=== PATIENT | female | born 1940 | race Caucasian/White ===

== ENCOUNTER 2018-03-19 19:04 | Inpatient (IN) ==
--- NOTE | 2018-03-19 20:13 | Emergency Department Note ---
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 insulin use: unspecified custodial insulin use status Diabetes mellitus complication status: with unspecified complications Qualified Code(s): E13.8 - Other specified diabetes mellitus with unspecified complications Disposition: Admitted As Inpatient Condition: Good Time of Disposition: 23:15 General Adult HPI - General Chief complaint: ED Dizziness Stated complaint: "Stroke Like Symptoms x 2 days" Time Seen by Provider: 03/19/18 19:55 Source: patient, family (Daughter) Mode of arrival: ambulatory Limitations: no limitations Nursing Notes Reviewed: Yes Vital Signs Reviewed: Yes - History of Present Illness HPI Narrative: 77-year-old female history of hypertension presents to the emergency department with complaint of stroke like symptoms. She reports numbness in her left hand with blurry vision and difficulty with walking. She denies any recent illness. No history of stroke. Denies any slurred speech or facial droop. She does not take any anticoagulants other than the baby aspirin on a daily basis. She states the last known well was about a week ago where she admits she denies any weakness, difficulty ambulating or numbness.. Her son went to see the patient and that was when she admitted to the symptoms and brought her here for evaluation. She is here with her daughter at this time. 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 She is denying any other complaints such as fever, cough, congestion, chest pain, shortness of breath, abdominal pain. No recent injury to her left arm or prior surgeries. It is isolated to the hand with some reported weakness. She denies any new medications. She has reports some weight loss and increased thirst as well as urination. A bedside point of care glucose was performed in [facility] on my initial evaluation. No history of cardiac ischemic disease. Pain Scale: 0 - Related Data Home Medications Medication Instructions Recorded Confirmed Ascorbic Acid [Vitamin C] 500 mg PO DAILY 03/19/18 03/19/18 Calcium Carbonate [Calcium] 500 mg PO DAILY 03/19/18 03/19/18 Cholecalciferol (D-3) [Vitamin D] 1,000 unit PO DAILY 03/19/18 03/19/18 Magnesium Oxide [Magnesium] 400 mg PO DAILY 03/19/18 03/19/18 Multivitamin [One Daily Essential] 1 tab PO DAILY 03/19/18 03/19/18 RX: Labetalol HCl 400 mg PO BID 03/19/18 03/19/18 RX: Lisinopril [Zestril] 20 mg PO DAILY 03/19/18 03/19/18 RX: Triamterene/HCTZ 37.5/25mg 1 tab PO DAILY 03/19/18 03/19/18 [Dyazide] Allergies Allergy/AdvReac Type Severity Reaction Status Date / Time ampicillin Allergy Rash Verified 03/19/18 22:09 Penicillins Allergy Rash Verified 03/19/18 22:09 All systems ED: reviewed and negative except as stated. Review of Systems: As Per HPI Constitutional: Reports: weakness. Denies: fever, chills Eyes: Reports: vision change (Blurry vision, improving) ENT ED: Denies: congestion Cardiovascular: Denies: chest pain Respiratory: Denies: cough, dyspnea Gastrointestinal: Denies: abdominal pain, nausea, vomiting Genitourinary: Denies: urgency, dysuria, hematuria Musculoskeletal: Denies: back pain, neck pain Integumentary: Denies: rash, abrasion Neurological: Reports: paresthesias, abnormal gait. Denies: headache, weakness, vertigo Psychiatric: Denies: anxiety, depression Endocrine: Reports: polydipsia, polyuria. Denies: fatigue Past Medical History - Past Medical History Attestation: Yes The following information was validated with the patient. 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 Absent: nystagmus - ENT ENT exam: normal exam, normal oropharynx, mucous membranes moist - Neck Neck exam: Present: normal inspection, full ROM, trachea midline. Absent: tenderness - Chest Chest inspection: Present: normal inspection, symmetric chest wall rise - Respiratory Respiratory exam: Present: normal lung sounds bilaterally - Cardiovascular Cardiovascular exam: Present: normal rhythm, tachycardia, normal heart sounds. Absent: systolic murmur, diastolic murmur - Expanded Cardiovascular Exam Peripheral pulses: 2+: radial (R), radial (L) - Abdominal Exam Abdominal exam: Present: soft, Non-Tender, normal bowel sounds. Absent: tenderness, distention, guarding, rebound, rigidity - Extremities Exam Extremities exam: Present: normal inspection, full ROM, normal capillary refill. Absent: tenderness, pedal edema - Back Exam Back exam: Present: normal inspection, full ROM. Absent: tenderness - Neurological Exam Neurological exam: Present: alert, oriented X3, CN II-XII intact, normal gait - Expanded Neurological Exam Patient oriented to: Present: person, place, time Speech: Present: fluid speech Cranial nerves: EOM function (II, III, IV, ): Normal, facial sensation (V): Normal, facial palsy (VII): Normal, gag reflex (IX): Normal, spinal accessory function (XI): Normal, tongue deviation (XII): Normal Cerebellar function: finger to nose: Normal Cerebellar function: normal gait Motor strength - LUE: 5/5 Motor strength - RUE: 5/5 Motor strength - LLE: 5/5 Motor strength - RLE: 5/5 Upper motor neuron exam: flex neglect: Absent bilaterally, pronator drift: Absent bilaterally Sensory exam upper extremity: light touch: Normal Sensory exam lower extremity: light touch: Normal Coma Scale Eye Opening: Spontaneous Coma Scale Motor Response: Obeys Commands Coma Scale Verbal Response: Oriented Coma Scale Total: 15 - Psychiatric Psychiatric exam: Present: normal affect, normal mood - Skin Skin exam: Present: warm, dry, intact, normal color. Absent: rash, cyanosis, diaphoresis Course Course Narrative: Patient presents with a complaint of left hand weakness numbness as well as difficulty with ambulation and blurred vision. The symptoms have been ongoing for which she reports almost a week is that was her last well-known were the symptoms were absent. Therefore no stroke alert was initiated. She also reports history of borderline diabetes is currently not on any medications other than antihypertensives. On physical exam patient was ambulatory but did lean to the right requiring support. She denies the facial droop. Her NIH score was 0. A point of care glucose was performed in the room during my examination and read high. I suspect the majority of her symptoms secondary to hyperglycemia and we will treat her as such and evaluate for possible DKA for new onset. Given her vague neurologic symptoms will also obtain a CT of the head. I performed additional test and did not reproduce any significant pain. She denied have any week and technical specialist cytogenetics strength. Is quite isolated and did not fit any other particular dermatome. Patient will be reevaluated after workup and disposition pending. - Reevaluation(s) Reevaluation #1: Patient has in anionic gap of 14. Her bicarbonates 20. She is slightly acidotic 7.34. Her ketones are 1. She is on the cusp of being in diabetic ketoacidosis. Patient will be initiated on insulin drip at this time as her glucose continues to read high on the glucometer. Her CT scan did not reveal any findings for stroke or normal pressure hydrocephalus. The numbness in her left hand could likely be due to peripheral neuropathy but her Tinel test was not suggestive. At this time patient will be admitted for hyperglycemia and new onset diabetes with weakness. She is in agreement with this plan. - Consultations Consultation #1: Spoke with on-call hospitalist gurdeep Albrecht to admit for hyperglycemia, new onset diabetes, weakness and acute kidney injury. No further orders at this time Time: 23:13 Vital Signs Temperature 98.1 F 03/19/18 19:06 Pulse Rate 116 03/19/18 19:06 Respiratory Rate 20 03/19/18 19:06 Blood Pressure 133/82 03/19/18 19:06 O2 Sat by Pulse Oximetry 97 03/19/18 19:06 Temperature 97.8 F 03/20/18 01:04 Pulse Rate 72 03/20/18 01:04 Respiratory Rate 18 03/20/18 01:04 Blood Pressure 189/86 03/20/18 01:04 O2 Sat by Pulse Oximetry 98 03/20/18 01:04 Oxygen Delivery Oxygen Delivery Room Air Medical Decision Making - MDM Narrative Medical decision making narrative: Patient was discussed with my attending physician who agrees with ED management and final disposition. They independently evaluated the patient. Please refer to their attestation to this encounter for additional information. This note was generated by [employer] voice recognition software and as a result grammatical or spelling errors may occur using this program. - Medical Records Medical records reviewed: Yes I reviewed the patient's medical records. - Lab Data Lab results reviewed: Yes I reviewed the patient's lab results. Result diagrams: 11/06/18 20:38 03/20/18 00:15 Lab Results 03/19/18 03/19/18 03/19/18 Range/Units 20:06 20:08 20:20 WBC (4.3-11.1) K/mcL RBC (3.82-4.97) M/mcL Hgb (11.5-15.4) g/dL Hct (35.3-44.9) % MCV (83.0-100.0) fL MCH (28.0-33.3) pg MCHC (31.6-35.5) g/dL RDW (11.5-14.5) % Plt Count (140-400) K/mcL MPV (9.4-12.4) fL Immature Gran % (0-4) % Seg Neutrophils % % Lymphocytes % % Monocytes % % Eosinophils % % Basophils % % Neutrophils # (1.6-8.9) K/mcL Lymphocytes # (0.6-4.6) K/mcL Monocytes # (0.0-1.3) K/mcL Eosinophils # (0.0-0.6) K/mcL Basophils # (0.0-0.2) K/mcL PT (9.4-12.1) Seconds INR APTT (26.0-36.0) Seconds VBG pH (7.32-7.42) pH Units VBG pCO2 (41-51) mmHg VBG pO2 (25-50) mmHg VBG HCO3 (21-27) mEq/L Sodium (136-145) mEq/L Potassium (3.5-5.1) mEq/L Chloride (98-107) mEq/L Carbon Dioxide (23-29) mEq/L BUN (8-23) mg/dL Creatinine (0.60-1.20) mg/dL Est GFR ( Amer) (> 60) Est GFR (Non-Af Amer) (> 60) BUN/Creatinine Ratio (6-26) Glucose (70-105) mg/dL POC Glucose > 600 H* > 600 H* (70-99) mg/dL Calculated Osmolality (280-300) Calcium (8.6-10.3) mg/dL Beta-Hydroxybutyric Acd (0.02-0.27) mmol/L Urine Color Yellow (Yellow) Urine Clarity Clear (Clear) Urine pH 6.5 (5.0-8.0) pH Units Ur Specific [place] > 1.030 H (1.010-1.025) Urine Protein Negative (Neg-Trace) mg/dL Urine Glucose (UA) >=1000 H (Normal) mg/dL Urine Ketones Trace H (Negative) mg/dL Urine Blood Negative (Negative) Urine Nitrite Negative (Negative) Urine Bilirubin Negative (Negative) Urine Urobilinogen Normal (Normal) mg/dL Ur Leukocyte Esterase Negative (Negative) Ur Culture Indicated? NO (NO) 03/19/18 03/19/18 03/19/18 Range/Units 20:38 20:38 20:38 WBC 9.5 (4.3-11.1) K/mcL RBC 4.60 (3.82-4.97) M/mcL Hgb 13.7 (11.5-15.4) g/dL Hct 42.1 (35.3-44.9) % MCV 91.5 (83.0-100.0) fL MCH 29.8 (28.0-33.3) pg MCHC 32.5 (31.6-35.5) g/dL RDW 12.8 (11.5-14.5) % Plt Count 181 (140-400) K/mcL MPV 11.2 (9.4-12.4) fL Immature Gran % 0.6 (0-4) % Seg Neutrophils % 70.9 % Lymphocytes % 18.8 % Monocytes % 7.6 % Eosinophils % 1.8 % Basophils % 0.3 % Neutrophils # 6.7 (1.6-8.9) K/mcL Lymphocytes # 1.8 (0.6-4.6) K/mcL Monocytes # 0.7 (0.0-1.3) K/mcL Eosinophils # 0.2 (0.0-0.6) K/mcL Basophils # 0.0 (0.0-0.2) K/mcL PT 11.2 (9.4-12.1) Seconds INR 1.0 APTT 32.5 (26.0-36.0) Seconds VBG pH (7.32-7.42) pH Units VBG pCO2 (41-51) mmHg VBG pO2 (25-50) mmHg VBG HCO3 (21-27) mEq/L Sodium 126 L (136-145) mEq/L Potassium 4.3 (3.5-5.1) mEq/L Chloride 92 L (98-107) mEq/L Carbon Dioxide 20 L (23-29) mEq/L BUN 29 H (8-23) mg/dL Creatinine 1.44 H (0.60-1.20) mg/dL Est GFR ( Amer) 43 L (> 60) Est GFR (Non-Af Amer) 35 L (> 60) BUN/Creatinine Ratio 20 (6-26) Glucose 784 H* (70-105) mg/dL POC Glucose (70-99) mg/dL Calculated Osmolality 306 H (280-300) Calcium 8.6 (8.6-10.3) mg/dL Beta-Hydroxybutyric Acd (0.02-0.27) mmol/L Urine Color (Yellow) Urine Clarity (Clear) Urine pH (5.0-8.0) pH Units Ur Specific [place] (1.010-1.025) Urine Protein (Neg-Trace) mg/dL Urine Glucose (UA) (Normal) mg/dL Urine Ketones (Negative) mg/dL Urine Blood (Negative) Urine Nitrite (Negative) Urine Bilirubin (Negative) Urine Urobilinogen (Normal) mg/dL Ur Leukocyte Esterase (Negative) Ur Culture Indicated? (NO) 03/19/18 03/19/18 Range/Units 20:38 20:54 WBC (4.3-11.1) K/mcL RBC (3.82-4.97) M/mcL Hgb (11.5-15.4) g/dL Hct (35.3-44.9) % MCV (83.0-100.0) fL MCH (28.0-33.3) pg MCHC (31.6-35.5) g/dL RDW (11.5-14.5) % Plt Count (140-400) K/mcL MPV (9.4-12.4) fL Immature Gran % (0-4) % Seg Neutrophils % % Lymphocytes % % Monocytes % % Eosinophils % % Basophils % % Neutrophils # (1.6-8.9) K/mcL Lymphocytes # (0.6-4.6) K/mcL Monocytes # (0.0-1.3) K/mcL Eosinophils # (0.0-0.6) K/mcL Basophils # (0.0-0.2) K/mcL PT (9.4-12.1) Seconds INR APTT (26.0-36.0) Seconds VBG pH 7.34 (7.32-7.42) pH Units VBG pCO2 42 (41-51) mmHg VBG pO2 52 H (25-50) mmHg VBG HCO3 23 (21-27) mEq/L Sodium (136-145) mEq/L Potassium (3.5-5.1) mEq/L Chloride (98-107) mEq/L Carbon Dioxide (23-29) mEq/L BUN (8-23) mg/dL Creatinine (0.60-1.20) mg/dL Est GFR ( Amer) (> 60) Est GFR (Non-Af Amer) (> 60) BUN/Creatinine Ratio (6-26) Glucose (70-105) mg/dL POC Glucose (70-99) mg/dL Calculated Osmolality (280-300) Calcium (8.6-10.3) mg/dL Beta-Hydroxybutyric Acd 1.00 H (0.02-0.27) mmol/L Urine Color (Yellow) Urine Clarity (Clear) Urine pH (5.0-8.0) pH Units Ur Specific [place] (1.010-1.025) Urine Protein (Neg-Trace) mg/dL Urine Glucose (UA) (Normal) mg/dL Urine Ketones (Negative) mg/dL Urine Blood (Negative) Urine Nitrite (Negative) Urine Bilirubin (Negative) Urine Urobilinogen (Normal) mg/dL Ur Leukocyte Esterase (Negative) Ur Culture Indicated? (NO) - Radiology Data Radiology results reviewed: Yes I reviewed the patient's radiology results. Chest X-Ray 03/19/18 20:10 IMPRESSION: 1. No acute abnormality. D/ / Regulo Marion MD / Regulo Marino MD Interpreting Provider: Regulo Marion MD Head CT 03/19/18 20:10 IMPRESSION: No acute intracranial abnormality. D/ / 03/19/2018 21:41:28 Desmond Truong MD / An Argueta Interpreting Provider: Desmond Truong MD - EKG Data EKG #1 EKG attestation: Yes I reviewed and interpreted this EKG. EKG results narrative: EKG performed 2136, normal sinus rhythm 87 beats per minute, normal axis, good R wave progression, no ST elevation or depression, NV interval 219, no drop QRS, no acute ischemic changes.
[2018-03-19 20:28] LABS: Bilirubin,Urine Negative (Negative); Blood,Urine Negative (Negative); Clarity,Urine Clear (Clear); Color,Urine Yellow (Yellow); Glucose,Urine (UA) >=1000 mg/dL (Normal); Ketones,Urine Trace mg/dL (Negative); Leukocyte Esterase,Urine Negative (Negative); Nitrite,Urine Negative (Negative); PH,Urine 6.5 pH Units (5.0-8.0); Protein,Urine Negative (Neg-Trace); Specific Gravity,Urine > 1.030 (1.010-1.025); Urobilinogen,Urine Normal (Normal)
[2018-03-19] MEDS ORDERED: 0.9 % Sodium Chloride 1,000 ML IVC ONE ×2 (20:37→21:42)
[2018-03-19 20:57] LABS: Basophils % 0.3 %; Eosinophils # 0.2 K/mcL (0.0-0.6); Eosinophils % 1.8 %; Hematocrit 42.1 % (35.3-44.9); Hemoglobin 13.7 g/dL (11.5-15.4); Immature Granulocytes % 0.6 % (0-4); Lymphocytes # 1.8 K/mcL (0.6-4.6); Lymphocytes % 18.8 %; Mean Corpuscular HGB Conc 32.5 g/dL (31.6-35.5); Mean Corpuscular Hemoglobin 29.8 pg (28.0-33.3); Mean Corpuscular Volume 91.5 fL (83.0-100.0); Mean Platelet Volume 11.2 fL (9.4-12.4); Monocytes # 0.7 K/mcL (0.0-1.3); Monocytes % 7.6 %; Neutrophils # 6.7 K/mcL (1.6-8.9); Platelet Count 181 K/mcL (140-400); Red Cell Distribution Width 12.8 % (11.5-14.5); Segmented Neutrophils % 70.9 %
[2018-03-19 21:00] LABS: VBG HCO3 23 mEq/L (21-27); VBG PCO2 42 mmHg (41-51); VBG PH 7.34 pH Units (7.32-7.42); VBG PO2 52 mmHg (25-50)
[2018-03-19 21:06] LABS: Prothrombin Time 11.2 Seconds (9.4-12.1)
[2018-03-19 21:08] LABS: Activated Partial Thrombo Time 32.5 Seconds (26.0-36.0)
[2018-03-19 21:18] LABS: Calcium 8.6 mg/dL (8.6-10.3); Potassium 4.3 mEq/L (3.5-5.1)
[2018-03-19] MEDS ORDERED: Insulin Human Regular 10 UNIT in 0.9 % Sodium Chloride 10 ML IV ONE (22:43)
[2018-03-19] MEDS ORDERED: *HR* Dextrose 50 % in Water (Syg) 50 ML SYRINGE IVP PRN ×2 (22:45→23:37)
[2018-03-19] MEDS ORDERED: Insulin Human Regular 100 UNIT in 0.9 % Sodium Chloride 100 ML IVC SCH ×4 (22:45→23:45)
[2018-03-19] MEDS ORDERED: D5% in 0.45% NACL w KCl 20 MEQ/1,000 ML MLS IVC PRN (23:37)
[2018-03-19] MEDS ORDERED: D5% in 0.45% NACL 1,000 ML IVC PRN (23:37)
--- NOTE | 2018-03-19 23:44 | Emergency Department Note ---
Disposition Clinical Impression: Weakness Diabetes mellitus Qualifiers: Diabetes mellitus type: other specified (including DARÍO) Diabetes mellitus half-way insulin use: unspecified half-way insulin use status Diabetes mellitus complication status: with unspecified complications Qualified Code(s): E13.8 - Other specified diabetes mellitus with unspecified complications Disposition: Admitted As Inpatient Condition: Good Time of Disposition: 23:45 General Adult HPI - General Chief complaint: ED Dizziness Stated complaint: "Stroke Like Symptoms x 2 days" Time Seen by Provider: 03/19/18 19:55 Source: patient, family (Daughter) Mode of arrival: ambulatory Limitations: no limitations Nursing Notes Reviewed: Yes Vital Signs Reviewed: Yes - History of Present Illness Pain Scale: 0 - Related Data Home Medications Medication Instructions Recorded Confirmed Ascorbic Acid [Vitamin C] 500 mg PO DAILY 03/19/18 03/19/18 Calcium Carbonate [Calcium] 500 mg PO DAILY 03/19/18 03/19/18 Cholecalciferol (D-3) [Vitamin D] 1,000 unit PO DAILY 03/19/18 03/19/18 Labetalol HCl 400 mg PO BID 03/19/18 03/19/18 Lisinopril [Zestril] 20 mg PO DAILY 03/19/18 03/19/18 Magnesium Oxide [Magnesium] 400 mg PO DAILY 03/19/18 03/19/18 Multivitamin [One Daily Essential] 1 tab PO DAILY 03/19/18 03/19/18 Triamterene/HCTZ 37.5/25mg 1 tab PO DAILY 03/19/18 03/19/18 [Dyazide] Allergies Allergy/AdvReac Type Severity Reaction Status Date / Time ampicillin Allergy Rash Verified 03/19/18 22:09 Penicillins Allergy Rash Verified 03/19/18 22:09 Constitutional: Reports: weakness. Denies: fever, chills Eyes: Reports: vision change (Blurry vision, improving) ENT ED: Denies: congestion Cardiovascular: Denies: chest pain Respiratory: Denies: cough, dyspnea Gastrointestinal: Denies: abdominal pain, nausea, vomiting Genitourinary: Denies: urgency, dysuria, hematuria Musculoskeletal: Denies: back pain, neck pain Integumentary: Denies: rash, abrasion Neurological: Reports: paresthesias, abnormal gait. Denies: headache, weakness, vertigo Psychiatric: Denies: anxiety, depression Endocrine: Reports: polydipsia, polyuria. 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 - Social History Smoking Status: Never smoker Smokeless Tobacco Status: No Alcohol use: Reports: none Drug use: Reports: none Physical Exam - General Limitations: no limitations General appearance: alert, in no apparent distress Course Vital Signs Temperature 98.1 F 03/19/18 19:06 Pulse Rate 116 03/19/18 19:06 Respiratory Rate 20 03/19/18 19:06 Blood Pressure 133/82 03/19/18 19:06 O2 Sat by Pulse Oximetry 97 03/19/18 19:06 Temperature 98.1 F 03/19/18 20:30 Pulse Rate 90 03/19/18 23:25 Respiratory Rate 18 03/19/18 23:25 Blood Pressure 185/102 03/19/18 23:25 O2 Sat by Pulse Oximetry 97 03/19/18 23:25 Oxygen Delivery Oxygen Delivery Room Air Medical Decision Making - Medical Records Medical records reviewed: Yes I reviewed the patient's medical records. - Lab Data Lab results reviewed: Yes I reviewed the patient's lab results. Result diagrams: 03/19/18 20:38 03/19/18 20:38 Lab Results 03/19/18 03/19/18 03/19/18 Range/Units 20:20 20:38 20:38 WBC 9.5 (4.3-11.1) K/mcL RBC 4.60 (3.82-4.97) M/mcL Hgb 13.7 (11.5-15.4) g/dL Hct 42.1 (35.3-44.9) % MCV 91.5 (83.0-100.0) fL MCH 29.8 (28.0-33.3) pg MCHC 32.5 (31.6-35.5) g/dL RDW 12.8 (11.5-14.5) % Plt Count 181 (140-400) K/mcL MPV 11.2 (9.4-12.4) fL Immature Gran % 0.6 (0-4) % Seg Neutrophils % 70.9 % Lymphocytes % 18.8 % Monocytes % 7.6 % Eosinophils % 1.8 % Basophils % 0.3 % Neutrophils # 6.7 (1.6-8.9) K/mcL Lymphocytes # 1.8 (0.6-4.6) K/mcL Monocytes # 0.7 (0.0-1.3) K/mcL Eosinophils # 0.2 (0.0-0.6) K/mcL Basophils # 0.0 (0.0-0.2) K/mcL PT (9.4-12.1) Seconds INR APTT (26.0-36.0) Seconds VBG pH (7.32-7.42) pH Units VBG pCO2 (41-51) mmHg VBG pO2 (25-50) mmHg VBG HCO3 (21-27) mEq/L Sodium 126 L (136-145) mEq/L Potassium 4.3 (3.5-5.1) mEq/L Chloride 92 L (98-107) mEq/L Carbon Dioxide 20 L (23-29) mEq/L BUN 29 H (8-23) mg/dL Creatinine 1.44 H (0.60-1.20) mg/dL Est GFR ( Amer) 43 L (> 60) Est GFR (Non-Af Amer) 35 L (> 60) BUN/Creatinine Ratio 20 (6-26) Glucose 784 H* (70-105) mg/dL Calculated Osmolality 306 H (280-300) Calcium 8.6 (8.6-10.3) mg/dL Beta-Hydroxybutyric Acd (0.02-0.27) mmol/L Urine Color Yellow (Yellow) Urine Clarity Clear (Clear) Urine pH 6.5 (5.0-8.0) pH Units Ur Specific [place] > 1.030 H (1.010-1.025) Urine Protein Negative (Neg-Trace) mg/dL Urine Glucose (UA) >=1000 H (Normal) mg/dL Urine Ketones Trace H (Negative) mg/dL Urine Blood Negative (Negative) Urine Nitrite Negative (Negative) Urine Bilirubin Negative (Negative) Urine Urobilinogen Normal (Normal) mg/dL Ur Leukocyte Esterase Negative (Negative) Ur Culture Indicated? NO (NO) 03/19/18 03/19/18 03/19/18 Range/Units 20:38 20:38 20:54 WBC (4.3-11.1) K/mcL RBC (3.82-4.97) M/mcL Hgb (11.5-15.4) g/dL Hct (35.3-44.9) % MCV (83.0-100.0) fL MCH (28.0-33.3) pg MCHC (31.6-35.5) g/dL RDW (11.5-14.5) % Plt Count (140-400) K/mcL MPV (9.4-12.4) fL Immature Gran % (0-4) % Seg Neutrophils % % Lymphocytes % % Monocytes % % Eosinophils % % Basophils % % Neutrophils # (1.6-8.9) K/mcL Lymphocytes # (0.6-4.6) K/mcL Monocytes # (0.0-1.3) K/mcL Eosinophils # (0.0-0.6) K/mcL Basophils # (0.0-0.2) K/mcL PT 11.2 (9.4-12.1) Seconds INR 1.0 APTT 32.5 (26.0-36.0) Seconds VBG pH 7.34 (7.32-7.42) pH Units VBG pCO2 42 (41-51) mmHg VBG pO2 52 H (25-50) mmHg VBG HCO3 23 (21-27) mEq/L Sodium (136-145) mEq/L Potassium (3.5-5.1) mEq/L Chloride (98-107) mEq/L Carbon Dioxide (23-29) mEq/L BUN (8-23) mg/dL Creatinine (0.60-1.20) mg/dL Est GFR ( Amer) (> 60) Est GFR (Non-Af Amer) (> 60) BUN/Creatinine Ratio (6-26) Glucose (70-105) mg/dL Calculated Osmolality (280-300) Calcium (8.6-10.3) mg/dL Beta-Hydroxybutyric Acd 1.00 H (0.02-0.27) mmol/L Urine Color (Yellow) Urine Clarity (Clear) Urine pH (5.0-8.0) pH Units Ur Specific [place] (1.010-1.025) Urine Protein (Neg-Trace) mg/dL Urine Glucose (UA) (Normal) mg/dL Urine Ketones (Negative) mg/dL Urine Blood (Negative) Urine Nitrite (Negative) Urine Bilirubin (Negative) Urine Urobilinogen (Normal) mg/dL Ur Leukocyte Esterase (Negative) Ur Culture Indicated? (NO) - Radiology Data Radiology results reviewed: Yes I reviewed the patient's radiology results. Chest X-Ray 03/19/18 20:10 IMPRESSION: 1. No acute abnormality. D/ / Regulo Marion MD / Regulo Marion MD Interpreting Provider: Regulo Marion MD Head CT 03/19/18 20:10 IMPRESSION: No acute intracranial abnormality. D/ / 03/19/2018 21:41:28 Desmond Truong MD / An Argueta Interpreting Provider: Desmond Truong MD - EKG Data EKG #1 EKG attestation: Yes I reviewed and interpreted this EKG. EKG results narrative: EKG shows a normal sinus rhythm with ventricular rate of 87. No acute ST segment elevation or depression. No arrhythmia or ectopy. Critical Care Time Critical Care Time: Yes Total Critical Care Time: 30 Attestation: Critical care performed: Time is exclusive of separately billable procedures. Time includes: direct patient care, patient reassessment, coordination of patient care, interpretation of data (laboratory data, radiology data, and respiratory data), review of patient's medical records, medical consultation and documentation of patient care. Procedures included in critical care time: Procedures excluded from critical care time: Attestation Statement - Attestation Attestation: I, Oswaldo Mendoza MD, personally evaluated this patient and discussed their management with the resident physician. I reviewed the resident's note and agree with the documented findings, medical decision making, and plan of care. 77-year-old female presents to the emergency department with a complaint of generalized weakness and fatigue which started one week prior to arrival. She complains of a numbness and tingling sensation in the palm of her left hand for the past week. This has been constant. No weakness in the left arm. She also complains of some word vision in both eyes for the past several days. She did have a headache a few days ago which has resolved now. Otherwise no pain. No chest pain or shortness of breath. No fever. No nausea or vomiting or diarrhea. No abdominal pain. On examination patient is a well-developed obese elderly female in no acute distress. She is alert and oriented 3. There is no cyanosis or diaphoresis. Breath sounds are clear and equal bilaterally. Heart regular rate and rhythm. Abdomen soft and nontender with normal bowel sounds. Trace pedal edema bilaterally. No gross focal neurological deficits. Labs reviewed. Marked hyperglycemia noted. Chest x-ray negative. Head CT negative. No acute changes on EKG. Patient did receive a and IV insulin bolus as well as IV insulin infusion. The hospitalist, Dr. Hutton, was consulted and accepted admission of the patient.
[2018-03-20] MEDS ORDERED: Naloxone 0.4 MG/ML INJ IVP PRN (00:01)
[2018-03-20] MEDS ORDERED: Ondansetron 4 MG/2 ML VIAL IVP PRN (00:01)
--- NOTE | 2018-03-20 00:12 | Internal Med History&Physical ---
<GeonYakovdanette - Last Filed: 03/20/18 02:11> Date of Encounter: 03/20/18 Time of Encounter: 00:08 Internal Medicine - H&P: HPI Chief complaint: stroke like symptoms, polyuria, polydipsia Admitted From: Emergency Dept Plans for Post Hospital Care: Home History of present illness: Ms. Davis is a 77 year old female with past medical history of hypertension, vertigo, diabetes. Patient arrived to the emergency department today with multiple chief complaints. She reports stroke like symptoms for the past week. She reports numbness and tingling in her left hand, specifically around the thenar eminence, blurry vision, difficulty walking, overall generalized weakness and fatigue. She denies lower extremity paresthesias. She also reports intermittent headache, and about 3-4 days of polyuria, polydipsia, poly freesia. She denies any abdominal pain and denies any recent sick contacts. She does however, admit to recent upper respiratory infection with significant cough that started about 5 days ago. She denies nausea, vomiting, diarrhea, fever, chills, chest pain, shortness of breath, hematuria, melena, hematochezia. Patient states that she was told by her doctor that she is prediabetic. However, last A1 C from 11/2017 was 7.8. Past Med Surg Social Fam HX - Past Medical History Medical history: hypertension Psychiatric history: no psych history - Social History Smoking Status: Never smoker Smokeless Tobacco Status: No Alcohol use: none Drug use: none - Family History Mother Living Status: Hx Family Endocrine Disorder: Yes (Diabetes) Hx Family Neurologic Disorders: Yes (Stroke) Father Living Status: Hx Family Neurologic Disorders: Yes (Stroke) Internal Medicine - H&P: Meds Ascorbic Acid [Vitamin C] 500 mg PO DAILY 03/19/18 [History] Calcium Carbonate [Calcium] 500 mg PO DAILY 03/19/18 [History] Cholecalciferol (D-3) [Vitamin D] 1,000 unit PO DAILY 03/19/18 [History] Labetalol HCl 400 mg PO BID 03/19/18 [History] Lisinopril [Zestril] 20 mg PO DAILY 03/19/18 [History] Magnesium Oxide [Magnesium] 400 mg PO DAILY 03/19/18 [History] Multivitamin [One Daily Essential] 1 tab PO DAILY 03/19/18 [History] Triamterene/HCTZ 37.5/25mg [Dyazide] 1 tab PO DAILY 03/19/18 [History] Allergy/AdvReac Type Severity Reaction Status Date / Time ampicillin Allergy Rash Verified 03/19/18 22:09 Penicillins Allergy Rash Verified 03/19/18 22:09 All Systems PM: A 10-system review of systems was performed and is negative for pertinent findings except as documented above in the HPI. - Constitutional Constitutional: as per HPI - EENT Eyes: as per HPI Ears: as per HPI Nose, mouth and throat: as per HPI - Breasts Breasts: as per HPI - Cardiovascular Cardiovascular ROS IM: as per HPI - Respiratory Respiratory: as per HPI - Gastrointestinal Gastrointestinal: as per HPI - Genitourinary Genitourinary: as per HPI Menstruation: as per HPI - Musculoskeletal Musculoskeletal ROS IM: as per HPI - Integumentary Integumentary IM: as per HPI - Neurological Neurological ROS: as per HPI - Psychiatric Psychiatric: as per HPI - Endocrine Endocrine IM: as per HPI - Hematologic/Lymphatic Hematologic/Lymphatic: as per HPI - Allergic/Immunologic Allergic/Immunologic: as per HPI - Constitutional Vitals: Temp Pulse Resp BP Pulse Ox 98.1 F 90 18 185/102 97 03/19/18 20:30 03/19/18 23:25 03/19/18 23:25 03/19/18 23:25 03/19/18 23:25 General appearance: Present: A&O X 3, pleasant, no acute distress, obese, answers questions appropriately Exam: Patient sitting up in bed comfortably - Head Head exam: Present: atraumatic, normal inspection, normocephalic - ENT ENT exam: Present: mucous membranes dry, normal oropharynx - Neck Neck exam general surgery: Present: supple, trachea midline - Respiratory Respiratory exam: Present: CTAB. Absent: chest wall tenderness, decreased breath sounds, prolonged expiratory phase, rales, respiratory distress, rhonchi, stridor, wheezes - Cardiovascular Cardiovascular exam: Present: RRR, +S1, +S2. Absent: bradycardia, clicks, diastolic murmur, distant heart sounds, irregular rhythm, systolic murmur, tachycardia - GI/Abdominal GI/Abdominal exam: Present: normal bowel sounds, soft. Absent: distended, firm, guarding, hernia, mass, tenderness - Extremities Exam Extremities exam: Absent: calf tenderness, cyanotic, full ROM, pedal edema, tenderness, warm - Neurological Exam Neurological exam: Present: alert, CN II-XII intact, oriented X3, no focal deficits, strengths equal and symetr throughout. Absent: facial droop, speech deficit Additional comments: numbness/tingling present on left thenar and hypothenar eminence. patient had positive tinels test and positive phalens test. - Psychiatric Psychiatric exam: Present: normal affect, normal mood. Absent: agitated, anxious - Skin Skin exam: Present: intact. Absent: dry, erythema Internal Med - H&P Results - Labs CBC & Chem 7: 03/19/18 20:38 03/20/18 00:15 Labs: Short CBC 03/19/18 Range/Units 20:38 WBC 9.5 (4.3-11.1) K/mcL Hgb 13.7 (11.5-15.4) g/dL Hct 42.1 (35.3-44.9) % Plt Count 181 (140-400) K/mcL Neutrophils # 6.7 (1.6-8.9) K/mcL BMP 03/19/18 20:38 Sodium 126 L Potassium 4.3 Chloride 92 L Carbon Dioxide 20 L BUN 29 H Creatinine 1.44 H Glucose 784 H* Calcium 8.6 Urine 03/19/18 Range/Units 20:20 Urine Color Yellow (Yellow) Urine Clarity Clear (Clear) Urine pH 6.5 (5.0-8.0) pH Units Ur Specific [place] > 1.030 H (1.010-1.025) Urine Protein Negative (Neg-Trace) mg/dL Urine Glucose (UA) >=1000 H (Normal) mg/dL - ABG Interpretation ABG results: 03/19/18 20:54 VBG pH 7.34 VBG pCO2 42 VBG pO2 52 H VBG HCO3 23 - Impressions ITS Impressions Chest X-Ray 03/19/18 20:10 IMPRESSION: 1. No acute abnormality. D/ / Regulo Marion MD / Regulo Marion MD Interpreting Provider: Regulo Marion MD Head CT 03/19/18 20:10 IMPRESSION: No acute intracranial abnormality. D/ / 03/19/2018 21:41:28 Desmond Truong MD / An Argueta Interpreting Provider: Desmond Truong MD - Assessment and plan (1) DKA (diabetic ketoacidoses) Current Visit: Yes Status: Acute Assessment and plan: 77-year-old female with history of diabetes reports blurry vision, polyuria, polydipsia for the past 3-4 days. Glucose noted to be 784, anion gap 14, serum ketones positive, serum bicarb 20 VBG: pH: 7.34, pCO2: 42, O2: 52 likely exacerbated by recent upper respiratory viral infection. Patient is not acidotic based on lab results, but will treat as DKA. Plan: DKA protocol: Q1HR accuchecks, BMP q4Hr, insulin gtt, IVF NPO will switch to SQ insulin per protocol. Qualifiers: Diabetes mellitus type: other specified (including DARÍO) Diabetes mellitus complication detail: without coma Qualified Code(s): E13.10 - Other specified diabetes mellitus with ketoacidosis without coma (2) Acute kidney injury Current Visit: Yes Status: Acute Assessment and plan: Creatinine 1.44. Creatinine noted to be normal in 11/2017. Etiology likely prerenal in setting of dehydration and DKA Plan: continue to monitor continue with DKA protocol (3) Numbness and tingling in left hand Current Visit: Yes Status: Acute Assessment and plan: Patient complains of numbness/tingling of the left thenar eminence that has been going on for about one week. She denies lower extremity weakness, numbness, tingling, facial drooping, slurred speech. This information was confirmed by her daughter, who was also present in the room. Upon my exam, she had no focal deficits besides left hand weakness. Muscle strength were equal and symmetrical in all 4 extremities. She did have positive Tinels test and positive Phalens test, so I suspect that her findings are more consistent with carpal tunnel syndrome rather than stroke. Plan: neuro checks Q4 hours if there is further suspicion for stroke, consider MRI and neuro consult. (4) Hyponatremia Current Visit: Yes Status: Acute Assessment and plan: pseudohyponatremia in setting of DKA current sodium 126 corrected sodium: 137 continue with DKA protocol (5) Hypertension Current Visit: Yes Status: Acute Assessment and plan: On oral antihypertensive medications at home. Currently NPO per DK protocol IV hydralazine PRN Qualifiers: Hypertension type: essential hypertension Qualified Code(s): I10 - Essential (primary) hypertension (6) DVT prophylaxis Current Visit: Yes Status: Acute Assessment and plan: Heparin SQ - Time Spent With Patient Total time spent is greater than 50% in coordination of care (as documented) at patient's floor/unit and/or counseling patient: <Fermín Maya A - Last Filed: 03/20/18 05:43> Date of Encounter: 03/20/18 Internal Medicine - H&P: HPI History of present illness: Ms. Davis is a 77 year old female All Systems PM: A 10-system review of systems was performed and is negative for pertinent findings except as documented above in the HPI. - Constitutional Vitals: Temp Pulse Resp BP Pulse Ox 97.5 F L 91 16 160/82 96 03/20/18 03:14 03/20/18 03:14 03/20/18 03:14 03/20/18 03:14 03/20/18 03:14 Internal Med - H&P Results - Labs CBC & Chem 7: 03/20/18 03:39 03/20/18 03:39 Labs: Short CBC 03/19/18 03/20/18 Range/Units 20:38 03:39 WBC 9.5 9.0 (4.3-11.1) K/mcL Hgb 13.7 11.7 D (11.5-15.4) g/dL Hct 42.1 35.2 L (35.3-44.9) % Plt Count 181 170 (140-400) K/mcL Neutrophils # 6.7 5.0 (1.6-8.9) K/mcL BMP 03/19/18 03/20/18 03/20/18 20:38 00:15 03:39 Sodium 126 L 131 L 134 L Potassium 4.3 3.8 3.6 Chloride 92 L 99 106 Carbon Dioxide 20 L 23 20 L BUN 29 H 26 H 21 Creatinine 1.44 H 1.27 H 0.91 Glucose 784 H* 601 H* 208 H Calcium 8.6 8.2 L 7.8 L Urine 03/19/18 Range/Units 20:20 Urine Color Yellow (Yellow) Urine Clarity Clear (Clear) Urine pH 6.5 (5.0-8.0) pH Units Ur Specific [place] > 1.030 H (1.010-1.025) Urine Protein Negative (Neg-Trace) mg/dL Urine Glucose (UA) >=1000 H (Normal) mg/dL - ABG Interpretation ABG results: 03/19/18 20:54 VBG pH 7.34 VBG pCO2 42 VBG pO2 52 H VBG HCO3 23 - Impressions ITS Impressions Chest X-Ray 03/19/18 20:10 IMPRESSION: 1. No acute abnormality. D/ / Regulo Marion MD / Regulo Marion MD Interpreting Provider: Regulo Marion MD Head CT 03/19/18 20:10 IMPRESSION: No acute intracranial abnormality. D/ / 03/19/2018 21:41:28 Desmond Truong MD / An Argueta Interpreting Provider: Desmond Truong MD - Time Spent With Patient Total time spent is greater than 50% in coordination of care (as documented) at patient's floor/unit and/or counseling patient: - Attending Attestation I performed a history and physical examination of the patient and discussed her management with the resident. I reviewed the resident's note and agree with the documented findings and plan of care. We will continue treatment for possible DKA. Low suspicion for stroke/TIA. Initial CT scan was unremarkable. Symptoms seem to be improving. Recommend continued neuro checks every 4 hours for now. Consider MRI for further evaluation.
[2018-03-20 00:50] LABS: Calcium 8.2 mg/dL (8.6-10.3); Potassium 3.8 mEq/L (3.5-5.1)
[2018-03-20] MEDS: 0.45 % Sodium Chloride w/KCl 20 MEQ/1,000 ML MLS IVC PRN ×2 (01:01→03:10)
[2018-03-20] MEDS ORDERED: *HR* Labetalol 20 MG/4 ML SYRINGE IVP ONE (01:38)
[2018-03-20 04:16] LABS: Basophils % 0.4 %; Eosinophils # 0.2 K/mcL (0.0-0.6); Eosinophils % 2.5 %; Hematocrit 35.2 % (35.3-44.9); Immature Granulocytes % 0.6 % (0-4); Lymphocytes # 2.9 K/mcL (0.6-4.6); Lymphocytes % 32.4 %; Mean Corpuscular HGB Conc 33.2 g/dL (31.6-35.5); Mean Corpuscular Hemoglobin 29.1 pg (28.0-33.3); Mean Corpuscular Volume 87.6 fL (83.0-100.0); Mean Platelet Volume 10.6 fL (9.4-12.4); Monocytes # 0.7 K/mcL (0.0-1.3); Monocytes % 8.2 %; Platelet Count 170 K/mcL (140-400); Red Blood Count 4.02 M/mcL (3.82-4.97); Red Cell Distribution Width 12.8 % (11.5-14.5); Segmented Neutrophils % 55.9 %
[2018-03-20 04:17] LABS: Hemoglobin 11.7 g/dL (11.5-15.4)
[2018-03-20 04:29] LABS: BUN/Creatinine Ratio 23 (6-26); Blood Urea Nitrogen 21 mg/dL (8-23); Calcium 7.8 mg/dL (8.6-10.3); Carbon Dioxide 20 mEq/L (23-29); Chloride 106 mEq/L (98-107); Chol/HDL Ratio 3.7 (0-4.9); Glucose 208 mg/dL (70-105); Magnesium 1.8 mg/dL (1.6-2.6); Osmolality,Calculated 287 (280-300); Phosphorous 1.8 mg/dL (2.7-4.5); Potassium 3.6 mEq/L (3.5-5.1); Sodium 134 mEq/L (136-145); eGFR For Non-African Americans > 60 (> 60)
[2018-03-20] MEDS ORDERED: Insulin DETEMIR 100 UNIT/ML X5UNITS SQ SCH ×3 (05:00→21:00)
[2018-03-20] MEDS: *HR* Heparin 5,000 UNIT/ML VIAL SQ SCH ×3 (05:06→21:37)
[2018-03-20] MEDS ORDERED: Dextrose Gel 15 GM/37.5 ML TUBE PO PRN ×2 (06:08)
[2018-03-20] MEDS ORDERED: D5% in Water 1,000 ML IVC PRN (06:08)
[2018-03-20] MEDS ORDERED: *HR* Dextrose 50 % in Water (Syg) 50 ML SYRINGE IVP PRN (06:08)
[2018-03-20 08:03] LABS: BUN/Creatinine Ratio 21 (6-26); Blood Urea Nitrogen 18 mg/dL (8-23); Carbon Dioxide 22 mEq/L (23-29); Chloride 106 mEq/L (98-107); Glucose 157 mg/dL (70-105); Osmolality,Calculated 285 (280-300); Potassium 3.6 mEq/L (3.5-5.1); Sodium 135 mEq/L (136-145); eGFR For Non-African Americans > 60 (> 60)
[2018-03-20 08:34] LABS: Estimated Average Glucose 358 mg/dl; Hemoglobin A1C 14.1 %
[2018-03-20] MEDS: Insulin LISPRO 300 UNITS/3 ML VIAL SQ SCH ×3 (08:49→17:19)
[2018-03-20] MEDS: Lisinopril 20 MG TABLET PO SCH (08:50)
[2018-03-20] MEDS: Magnesium Oxide 400 MG TABLET PO SCH (08:50)
[2018-03-20] MEDS ORDERED: *HR* GlipiZIDE XL (24 HR) 2.5 MG TABLET PO SCH (10:14)
[2018-03-20] MEDS: *HR* Metformin 500 MG TABLET PO SCH ×2 (11:42→17:19)
--- NOTE | 2018-03-20 15:11 | Internal Med Progress Note ---
Hospitalist Progress Note - Encounter Date of Encounter: 03/20/18 Time of Encounter: 09:00 - Subjective Interval History: Pt feels fine, mild left hand numbness. Denies nausea, vomiting. Pt has not on any DM medication at home. - Exam Vitals: Temp Pulse Resp BP Pulse Ox 97.9 F 94 18 154/71 95 03/20/18 11:26 03/20/18 11:26 03/20/18 11:26 03/20/18 07:55 03/20/18 11:26 Exam: Patient sitting up in bed comfortably HEENT: NC/AT, PERRL Neck: Supple, no JVD Lungs: CTA b/l Heart: S1S2, RRR Abd: Soft, NT Ext: No pedal edema. Neuro: AAO x 3, strength equal b/l, vision field intact, no gait change. - Assessment and Plan (1) Acute kidney injury Current Visit: Yes Status: Resolved Assessment and Plan: Resolved after hydration. (2) DKA (diabetic ketoacidoses) Current Visit: Yes Status: Resolved Assessment and Plan: Resolved, AG closed, ADA diet started. (3) DVT prophylaxis Current Visit: Yes Status: Acute Assessment and Plan: Heparin SC (4) Diabetes mellitus Current Visit: Yes Status: Acute Assessment and Plan: Pt has Hx of DM but not on any home meds. Hgb A1C 14. Pt doesn't want start with insulin but would like to try po meds. - Place pt on po Glipizide and metformin. If po meds cannot well control Glu level, need to start insulin. - RN for DM education. - Need Glucometer prescription on discharge. (5) Hypertension Current Visit: Yes Status: Acute Assessment and Plan: Cont home meds. (6) Numbness and tingling in left hand Current Visit: Yes Status: Acute Assessment and Plan: No signs of focal weakness. Symptoms last over one week. CT head negative for infarct. Consider DM neuropathy vs carple tunnel syndrome, no further inpatient workup, cont treatment as outpatient. - Time Spent with Patient Total time spent is greater than 50% in coordination of care (as documented) at patient's floor/unit and/or counseling patient: 30 min 25 - 35 minutes Plan of Care Discussed with: patient Internal Medicine: Result - Labs CBC & Chem 7: 03/20/18 03:39 03/20/18 07:32 Labs: Short CBC 03/19/18 03/20/18 Range/Units 20:38 03:39 WBC 9.5 9.0 (4.3-11.1) K/mcL Hgb 13.7 11.7 D (11.5-15.4) g/dL Hct 42.1 35.2 L (35.3-44.9) % Plt Count 181 170 (140-400) K/mcL Neutrophils # 6.7 5.0 (1.6-8.9) K/mcL BMP 03/19/18 03/20/18 03/20/18 20:38 00:15 03:39 Sodium 126 L 131 L 134 L Potassium 4.3 3.8 3.6 Chloride 92 L 99 106 Carbon Dioxide 20 L 23 20 L BUN 29 H 26 H 21 Creatinine 1.44 H 1.27 H 0.91 Glucose 784 H* 601 H* 208 H Calcium 8.6 8.2 L 7.8 L 03/20/18 07:32 Sodium 135 L Potassium 3.6 Chloride 106 Carbon Dioxide 22 L BUN 18 Creatinine 0.84 Glucose 157 H Calcium 8.0 L Urine 03/19/18 Range/Units 20:20 Urine Color Yellow (Yellow) Urine Clarity Clear (Clear) Urine pH 6.5 (5.0-8.0) pH Units Ur Specific [place] > 1.030 H (1.010-1.025) Urine Protein Negative (Neg-Trace) mg/dL Urine Glucose (UA) >=1000 H (Normal) mg/dL - ABG Interpretation ABG results: PT/INR, D-dimer PT 11.2 Seconds (9.4-12.1) 03/19/18 20:38 - Impressions Impressions Chest X-Ray 03/19/18 20:10 IMPRESSION: 1. No acute abnormality. D/ / Regulo Marion MD / Regulo Marion MD Interpreting Provider: Regulo Marion MD Head CT 03/19/18 20:10 IMPRESSION: No acute intracranial abnormality. D/ / 03/19/2018 21:41:28 Desmond Truong MD / An Argueta Interpreting Provider: Desmond Truong MD Consult Discharge Plan - Plan Referrals: Khurram Fernando DO [Primary Care Provider] - (Per Dr. Fernando's office patient has to call and make their own follow up appointment) (2) DKA (diabetic ketoacidoses) Qualifiers: Diabetes mellitus type: other specified (including DARÍO) Diabetes mellitus complication detail: without coma Qualified Code(s): E13.10 - Other specified diabetes mellitus with ketoacidosis without coma (4) Diabetes mellitus Qualifiers: Diabetes mellitus type: other specified (including DARÍO) Diabetes mellitus chcf insulin use: unspecified chcf insulin use status Diabetes mellitus complication status: with unspecified complications Qualified Code(s): E13.8 - Other specified diabetes mellitus with unspecified complications (5) Hypertension Qualifiers: Hypertension type: essential hypertension Qualified Code(s): I10 - Essential (primary) hypertension
--- NOTE | 2018-03-20 16:11 | Electrocardiograph Report ---
[address] [address] Test Date: 2018-03-19 Pat Name: Vale Davis Department: EXAMC6 Room: 2N12 Gender: F Security Delivery Specialist: : [id number] Requested By: Mustapha Bernal Order Number: [id number] Reading MD: Edmundo Lebron Measurements Intervals [place] Rate: 87 P: 61 WA: 219 QRS: 29 QRSD: 122 T: 28 QT: 409 QTc: 493 Interpretive Statements Sinus rhythm Borderline prolonged [place] interval Electronically Signed On 03-20-2018 16:09:44 EST by Edmundo Lebron
[2018-03-20] MEDS ORDERED: Insulin LISPRO 300 UNITS/3 ML VIAL SQ SCH ×2 (21:00)
[2018-03-21 04:33] LABS: BUN/Creatinine Ratio 19 (6-26); Blood Urea Nitrogen 19 mg/dL (8-23); Calcium 8.5 mg/dL (8.6-10.3); Carbon Dioxide 20 mEq/L (23-29); Chloride 105 mEq/L (98-107); Glucose 266 mg/dL (70-105); Osmolality,Calculated 288 (280-300); Potassium 3.6 mEq/L (3.5-5.1); Sodium 133 mEq/L (136-145); eGFR For Non-African Americans 53 (> 60)
[2018-03-21] MEDS: *HR* Heparin 5,000 UNIT/ML VIAL SQ SCH ×2 (05:59→15:33)
[2018-03-21] MEDS: Magnesium Oxide 400 MG TABLET PO SCH (08:26)
[2018-03-21] MEDS: Lisinopril 20 MG TABLET PO SCH (08:26)
[2018-03-21] MEDS: Insulin LISPRO 300 UNITS/3 ML VIAL SQ SCH ×2 (08:39→11:50)
[2018-03-21] MEDS ORDERED: Multivit/Ca/Min/Fe/FA 1 TAB TABLET PO SCH (09:00)
[2018-03-21] MEDS ORDERED: Cholecalciferol (D-3) 1,000 UNIT TABLET PO SCH (09:00)
[2018-03-21] MEDS ORDERED: Ascorbic Acid 500 MG TABLET PO SCH (09:00)
[2018-03-21 11:01] VITALS: BP 161/89
--- NOTE | 2018-03-21 11:28 | Discharge Summary ---
- NOTES TO OUTPATIENT PROVIDER Notes to Outpatient Provider: 1. Pt admitted as DKA, Hgb A1C 14, started basal and sliding scale insulin, please closely f/u Glu level. Date of Encounter: 03/21/18 Time of Encounter: 09:00 - Discharge Diagnosis (1) Acute kidney injury Priority: Primary Status: Resolved (2) DKA (diabetic ketoacidoses) Priority: Primary Status: Resolved Qualifiers: Diabetes mellitus type: other specified (including DARÍO) Diabetes mellitus complication detail: without coma Qualified Code(s): E13.10 - Other specified diabetes mellitus with ketoacidosis without coma (3) DVT prophylaxis Priority: Secondary Status: Acute (4) Diabetes mellitus Priority: Primary Status: Acute Qualifiers: Diabetes mellitus type: other specified (including DARÍO) Diabetes mellitus retirement insulin use: unspecified retirement insulin use status Diabetes mellitus complication status: with unspecified complications Qualified Code(s): E13.8 - Other specified diabetes mellitus with unspecified complica tions (5) Hypertension Priority: Secondary Status: Acute Qualifiers: Hypertension type: essential hypertension Qualified Code(s): I10 - Essential (primary) hypertension (6) Numbness and tingling in left hand Priority: Primary Status: Acute Hospital course: Ms. Davis is a 77 year old female admitted for DKA. She was treated with insulin drip and IVF. She was switched to sc insulin later. Pt doesn't use insulin at home. Hgb A1C 14.1, basal and SSI started. Bedside DM education has been done by RN. I have seen and examined this pt today. Pt is AAO x 3, no complaints, feels better, vitals stable, will d/c home with basal (levemer 15 units HS) plus medium dose SSI, pt was educated how to inject insulin, how to check Glu level, the signs of hypoglycemia and she needs always prepare food available before use insulin. Pt was instructed to record insulin dose and Glu level log to bring to PCP for further dose adjustment. Pt will DC home today and f/u with PCP on Mo nday. - Time Spent with Patient Total time spent providing and/or coordinating discharge services: 40 min Greater than 30 minutes - Discharge Medications Prescriptions: Insulin DETEMIR [Levemir] 15 unit SQ HS 30 Days #90 [id number] Insulin LISPRO [HumaLOG] See Protocol SQ HS 30 Days #2 vial Insulin LISPRO [HumaLOG] See Protocol SQ TIDAC 30 Days #3 vial Home Medications: Ascorbic Acid [Vitamin C] 500 mg PO DAILY 03/19/18 [History] Calcium Carbonate [Calcium] 500 mg PO DAILY 03/19/18 [History] Cholecalciferol (D-3) [Vitamin D] 1,000 unit PO DAILY 03/19/18 [History] Labetalol HCl 400 mg PO BID 03/19/18 [History] Lisinopril [Zestril] 20 mg PO DAILY 03/19/18 [History] Magnesium Oxide [Magnesium] 400 mg PO DAILY 03/19/18 [History] Multivitamin [One Daily Essential] 1 tab PO DAILY 03/19/18 [History] Triamterene/HCTZ 37.5/25mg [Dyazide] 1 tab PO DAILY 03/19/18 [History] Alcohol Antiseptic Pads [Alcohol Pads] 1 each [facility]CHS 100 Days #500 med..pad 03/21/18 [Rx] Insulin DETEMIR [Levemir] 15 unit SQ HS 30 Days #90 [id number] 03/21/18 [Rx] Insulin LISPRO [HumaLOG] See Protocol SQ HS 30 Days #2 vial 03/21/18 [Rx] Insulin LISPRO [HumaLOG] See Protocol SQ TIDAC 30 Days #3 vial 03/21/18 [Rx] Lancets/Blood Glucose Strips [Fora [id number] Strp-Lnct] 1 each [facility] 100 Days #400 combo..pkg 03/21/18 [Rx] Syring-Needl,Disp,Insul,0.3 ml [Advocate Syringes] 1 each [facility] 100 Days #400 disp.syrin 03/21/18 [Rx] Allergies/Adverse Reactions: Allergy/AdvReac Type Severity Reaction Status Date / Time ampicillin Allergy Rash Verified 03/19/18 22:09 Penicillins Allergy Rash Verified 03/19/18 22:09 Date of admission: 03/20/18 00:21 Primary care physician: Khurarm Belle Colopy Consults: 03/19/18 23:37 Consult for Pharmacy Education [CONS] Routine Reason for Consult: DKA education Call Completed: No 03/20/18 06:08 Consult to Diabetes Education [CONS] Routine Comment: Reason for Consult: New onset diabetes Discharging clinician: Lou Armenta Anticipated date of discharge: 03/21/18 - Constitutional Vitals: Temp Pulse Resp BP Pulse Ox 97.8 F 90 16 161/89 95 03/21/18 10:57 03/21/18 10:58 03/21/18 10:57 03/21/18 10:57 03/21/18 10:57 General appearance: Present: A&O X 3, pleasant, no acute distress, obese, answers questions appropriately Exam: in NAD - Head Head exam: Present: atraumatic, normocephalic - Eye Eye exam: Present: PERRL, conjuntiva pink, sclera anicteric Pupils: Present: PERRL - Neck Neck exam general surgery: Present: supple, trachea midline. Absent: lymphadenopathy - Respiratory Respiratory exam: Present: CTAB. Absent: accessory muscle use, rales, rhonchi, wheezes - Cardiovascular Cardiovascular exam: Present: RRR, +S1, +S2. Absent: diastolic murmur, gallop, rubs, systolic murmur - GI/Abdominal GI/Abdominal exam: Present: normal bowel sounds, soft, no peritoneal signs. Absent: distended, tenderness - Extremities Exam Extremities exam: Present: warm, radial pulses palpable and symmetrical. Absent: calf tenderness, cyanotic, pedal edema - Neurological Exam Neurological exam: Present: CN II-XII intact, oriented X3, no focal deficits. Absent: pronater drift, facial droop, speech deficit - Skin Skin exam: Present: dry, intact - Patient Status Disposition: Home, Self-Care Condition: Good Functional capacity at discharge: independent ambulation Overall status at discharge: patient is back to baseline - Discharge Instructions Follow Up With: Khurram Fernando DO [Primary Care Provider] - 03/25/18 (Per Dr. Fernando's office patient has to call and make their own follow up appointment) - Diet and Activity Activity: increase activity as tolerated Diet: diabetic diet
== END 2018-03-21 16:04 | disposition home or self-care (01) | DRG 638 ==
LOC: EMEROOARM 19:04 → 3BNU 19:04 → 2NNU 23:37
PROVIDERS: ADMIT Internal Medicine; ATTEND Internal Medicine